=== PATIENT | male | born 1965 | race Caucasian/White ===

== ENCOUNTER 2016-12-14 09:44 | Inpatient (IN) | payer MEDICAID ==
[~2016-12-14] VITALS: Ht 180.3 cm; Wt 108.0 kg
[2016-12-14 10:19] LABS: Basophils # (auto) 0.1 uL; Basophils % (auto) 1.1 % (0.0-2.0); CONDITION Y; Eosinophils # (auto) 0.1 uL; Eosinophils % (auto) 0.7 % (0.0-7.0); Hematocrit 44.3 % (41.0-53.0); Hemoglobin 15.4 g/dL (13.5-17.5); Lymphocytes # (auto) 2.6 uL; Lymphocytes % (auto) 30.6 % (10.0-50.0); Mean Corpuscular Hemoglobin 31.9 pg (28.0-32.0); Mean Corpuscular Hgb Conc. 34.9 g/dL (32.0-36.0); Mean Corpuscular Volume 91.4 fL (80.0-100.0); Mean Platelet Volume 9.5 fL (7.4-10.4); Monocytes % (auto) 11.3 % (0.0-12.0); Neutrophils # (auto) 4.9 uL; Neutrophils % (auto) 56.3 % (37.0-80.0); Platelet Count (auto) 121 10^3/uL (140-450); Red Cell Distribution Width 12.7 % (11.6-16.0); White Blood Cell 8.6 10^3/uL (4.4-10.8)
[2016-12-14 10:59] LABS: Albumin 3.4 g/dL (3.4-5.0); Anion Gap 9 (5-15); Blood Urea Nitrogen 11 mg/dL (7-18); Calcium 8.7 mg/dL (8.5-10.1); Carbon Dioxide 24 mmol/L (21-32); Chloride 105 mmol/L (98-107); Glucose 90 mg/dL (74-106); Potassium 3.4 mmol/L (3.5-5.1); Sodium 138 mmol/L (136-145)
[2016-12-14 11:01] LABS: Aspartate Aminotransferase 31 U/L (15-37); BUN/Creatinine Ratio 13.4; GFR African American 127 mL/min; GFR Non-African American 105 mL/min
[2016-12-14 11:05] LABS: Alkaline Phosphatase 108 U/L (45-117); Bilirubin, Total 0.8 mg/dL (0.2-1.0); Total Protein 8.3 g/dL (6.4-8.2)
[2016-12-14] MEDS ORDERED: POTASSIUM CHL 20 Meq TABLET PO ONE (11:30)
[2016-12-14] MEDS ORDERED: cefTRIAXone 1GM/50ML D5W 50 ML IV ONE (11:30)
[2016-12-14] MEDS ORDERED: ASPirin 81 mg TAB PO ONE ×2 (11:30→12:45)
[2016-12-14] MEDS ORDERED: SODIUM CHLORIDE 0.9% 1,000 ML IV ONE (11:30)
[2016-12-14] MEDS ORDERED: ACETAMINOPHEN 325 MG TAB PO ONE (11:30)
[2016-12-14] MEDS ORDERED: SODIUM CHLORIDE 0.9% 1,000 ML IV SCH (11:36)
[2016-12-14] MEDS ORDERED: ACETAMINOPHEN 500 MG TAB PO PRN (11:45)
[2016-12-14] MEDS ORDERED: LORazepam 0.5 MG TAB PO PRN (11:45)
[2016-12-14] MEDS ORDERED: ONDANSETRON HCL 4 MG/2 ML VIAL IV PRN ×2 (11:45)
[2016-12-14] MEDS ORDERED: HYDROcodone-ACET 5/325MG TAB PO PRN (11:45)
[2016-12-14] MEDS ORDERED: NITROGLYCERIN 0.4 MG SL TAB SL PRN (11:45)
[2016-12-14] MEDS ORDERED: MORPHINE SULFATE 4 MG/ML SYRG IV PRN ×2 (11:45)
[2016-12-14] MEDS ORDERED: TEMAZEPAM 15 MG CAP PO PRN (11:45)
[2016-12-14 12:29] LABS: B-Type Natriuretic Peptide 14.65 pg/mL (0-100)
[2016-12-14] MEDS: AZITHROMYCIN 500MG/D5W 250ML 250 ML IV SCH (12:30)
[2016-12-14 12:37] LABS: Temperature: 22.5 C (20.0-25.0)
[2016-12-14] MEDS: SODIUM CHLORIDE 0.9% 1,000 ML IV SCH (12:54)
[2016-12-14 13:10] LABS: INR 1.05 (0.9-1.15); Partial Thromboplastin Time 29.3 sec (22.64-33.71); Prothrombin Time 11.4 sec (9.37-12.3)
[2016-12-14] MEDS: METOPROLOL TARTRATE 25 MG TAB PO SCH ×2 (13:15→22:16)
[2016-12-14] MEDS: NITROGLYCERIN 0.2MG/HR TOPICAL PATCH TD SCH (13:15)
[2016-12-14 13:33] LABS: Temperature: 22.3 C (20.0-25.0)
[2016-12-14 13:46] LABS: Urine Bilirubin Negative (Negative); Urine Blood Negative /uL (Negative); Urine Ca Oxalate Crystal FEW (None Seen); Urine Color Yellow (Yellow); Urine Glucose Normal (Normal); Urine Ketone Negative (Negative); Urine Mucus FEW (None Seen); Urine Nitrite Negative (Negative); Urine RBC 1 /hpf (0 - 3); Urine Squamous Epithelial Cell FEW /hpf (<5); Urine pH 5.5 (5.0-8.0)
[2016-12-14 17:31] VITALS: BP 99/60
[2016-12-14 20:00] VITALS: BP 114/59
[2016-12-14 22:00] VITALS: BP 114/59
[2016-12-14] MEDS ORDERED: ATORVASTATIN 20 MG TAB PO SCH ×2 (22:00)
[2016-12-14] MEDS: APIXABAN 5 MG TAB PO SCH (22:16)
[2016-12-15 03:12] VITALS: BP 109/74
[2016-12-15 03:36] LABS: Cholesterol 128 mg/dL (< 200); HDL Cholesterol 21 mg/dL (40-59); LDL Cholesterol 95 mg/dL (< 100); Triglycerides 93 mg/dL (< 150)
[2016-12-15 05:00] VITALS: BP 122/78
[2016-12-15] MEDS: SODIUM CHLORIDE 0.9% 1,000 ML IV SCH (06:14)
[2016-12-15 06:24] LABS: Basophils # (auto) 0 uL; Basophils % (auto) 0.4 % (0.0-2.0); CONDITION Y; Eosinophils # (auto) 0.2 uL; Eosinophils % (auto) 3.7 % (0.0-7.0); Hematocrit 41.4 % (41.0-53.0); Hemoglobin 14.4 g/dL (13.5-17.5); Lymphocytes # (auto) 2.2 uL; Lymphocytes % (auto) 33.2 % (10.0-50.0); Mean Corpuscular Hemoglobin 32.5 pg (28.0-32.0); Mean Corpuscular Hgb Conc. 34.9 g/dL (32.0-36.0); Mean Corpuscular Volume 93.2 fL (80.0-100.0); Mean Platelet Volume 9.8 fL (7.4-10.4); Monocytes # (auto) 0.9 uL; Monocytes % (auto) 13.9 % (0.0-12.0); Neutrophils # (auto) 3.2 uL; Neutrophils % (auto) 48.8 % (37.0-80.0); Platelet Count (auto) 105 10^3/uL (140-450); Red Cell Distribution Width 12.9 % (11.6-16.0); White Blood Cell 6.5 10^3/uL (4.4-10.8)
[2016-12-15 06:38] LABS: INR 1.07 (0.9-1.15); Partial Thromboplastin Time 31.6 sec (22.64-33.71); Prothrombin Time 11.7 sec (9.37-12.3)
[2016-12-15 06:43] LABS: BUN/Creatinine Ratio 17.5; Calcium 8.3 mg/dL (8.5-10.1); Potassium 3.6 mmol/L (3.5-5.1)
[2016-12-15 08:00] VITALS: BP 122/78
[2016-12-15 09:00] VITALS: BP 115/60
[2016-12-15] MEDS ORDERED: ASPirin 81 mg TAB PO SCH (10:00)
[2016-12-15] MEDS: AZITHROMYCIN 500MG/D5W 250ML 250 ML IV SCH (10:00)
[2016-12-15] MEDS: NITROGLYCERIN 0.2MG/HR TOPICAL PATCH TD SCH (10:00)
[2016-12-15] MEDS: METOPROLOL TARTRATE 25 MG TAB PO SCH (10:33)
[2016-12-15] MEDS: APIXABAN 5 MG TAB PO SCH (10:33)
[2016-12-15 13:00] VITALS: BP 114/64
== END 2016-12-15 13:30 | disposition left against medical advice (07) | DRG 140 ==
LOC: ER 09:44 → TELE 09:45 → TELE-E-ADS 16:07 → TELE-EAST 18:18
PROVIDERS: ADMIT Nurse Practitioner Family; ATTEND Nurse Practitioner Family
DX: J44.0 Chronic obstructive pulmonary disease with (acute) lower respiratory infection (principal); J18.9 Pneumonia, unspecified organism; N39.0 Urinary tract infection, site not specified; G45.9 Transient cerebral ischemic attack, unspecified; I15.9 Secondary hypertension, unspecified; I48.91 Unspecified atrial fibrillation; E86.0 Dehydration; J44.1 Chronic obstructive pulmonary disease with (acute) exacerbation; E87.6 Hypokalemia; E78.5 Hyperlipidemia, unspecified; B19.20 Unspecified viral hepatitis C without hepatic coma; F15.10 Other stimulant abuse, uncomplicated; I25.119 Atherosclerotic heart disease of native coronary artery with unspecified angina pectoris; F17.210 Nicotine dependence, cigarettes, uncomplicated; E66.9 Obesity, unspecified; Z68.33 Body mass index [BMI] 33.0-33.9, adult; Z82.49 Family history of ischemic heart disease and other diseases of the circulatory system; Z90.89 Acquired absence of other organs; I25.2 Old myocardial infarction
CPT/HCPCS: 36415; 70450; 71020; 71275; 80048; 80053; 80061; 80307; 81001; 82550; 82607; 82746; 83880; 84443; 84484; 85025; 85379; 85610; 85652; 85730; 86141; 87040; 93005; 93306; 93886; 96365; 96366; 99291; J0696

== ENCOUNTER 2017-04-08 11:04 | Observation (INO) | payer MEDICAID ==
[~2017-04-08] VITALS: Ht 177.8 cm; Wt 81.6 kg
[2017-04-08] MEDS ORDERED: SODIUM CHLORIDE 0.9% 1,000 ML IV ONE (11:41)
[2017-04-08] MEDS ORDERED: KETOROLAC TROMETH 30 MG/ML 1ML VIAL IV ONE (11:45)
[2017-04-08 12:51] LABS: Basophils # (auto) 0.1 uL; Basophils % (auto) 0.6 % (0.0-2.0); Eosinophils # (auto) 0.1 uL; Eosinophils % (auto) 0.7 % (0.0-7.0); Hematocrit 45.3 % (41.0-53.0); Hemoglobin 15.5 g/dL (13.5-17.5); Lymphocytes # (auto) 2.3 uL; Lymphocytes % (auto) 22.8 % (10.0-50.0); Mean Corpuscular Hemoglobin 30.9 pg (28.0-32.0); Mean Corpuscular Hgb Conc. 34.1 g/dL (32.0-36.0); Mean Corpuscular Volume 90.6 fL (80.0-100.0); Monocytes # (auto) 0.9 uL; Monocytes % (auto) 8.5 % (0.0-12.0); Neutrophils # (auto) 6.9 uL; Neutrophils % (auto) 67.4 % (37.0-80.0); Platelet Count (auto) 120 10^3/uL (140-450); Red Cell Distribution Width 13.9 % (11.8-14.3); White Blood Cell 10.2 10^3/uL (4.4-10.8)
[2017-04-08 13:10] LABS: BUN/Creatinine Ratio 22.2; Calcium 9.4 mg/dL (8.5-10.1); Potassium 3.7 mmol/L (3.5-5.1)
[2017-04-08 14:28] VITALS: BP 151/75
== END 2017-04-08 14:25 | disposition home or self-care (01) | DRG 465 ==
LOC: ER 11:04 → EDBD 11:04 → OVERFLOW 11:42 → ER 14:25
PROVIDERS: ADMIT Emergency Medicine; ATTEND Emergency Medicine
DX: N20.0 Calculus of kidney (principal); I48.91 Unspecified atrial fibrillation; I10 Essential (primary) hypertension; F17.210 Nicotine dependence, cigarettes, uncomplicated
CPT/HCPCS: 36415; 74176; 80048; 85025; 93005; 96374; 99285; G0378; J1885; J7030

== ENCOUNTER 2017-07-20 11:24 | Inpatient (IN) | payer MEDICAID ==
[~2017-07-20] VITALS: Ht 185.4 cm; Wt 84.1 kg
[2017-07-20 12:03] LABS: Basophils # (auto) 0.4 uL; Basophils % (auto) 3.1 % (0.0-2.0); Eosinophils # (auto) 0 uL; Eosinophils % (auto) 0.1 % (0.0-7.0); Hematocrit 45.2 % (41.0-53.0); Hemoglobin 15.1 g/dL (13.5-17.5); Lymphocytes # (auto) 2.2 uL; Lymphocytes % (auto) 15.7 % (10.0-50.0); Mean Corpuscular Hemoglobin 29.5 pg (28.0-32.0); Mean Corpuscular Hgb Conc. 33.5 g/dL (32.0-36.0); Monocytes # (auto) 0.8 uL; Monocytes % (auto) 5.7 % (0.0-12.0); Neutrophils # (auto) 10.7 uL; Neutrophils % (auto) 75.4 % (37.0-80.0); Nucleated Red Blood Cells % 0.1 %; Platelet Count (auto) 301 10^3/uL (140-450); Red Blood Cells 5.13 10^6/uL (4.5-5.90); Red Cell Distribution Width 13.8 % (11.8-14.3); White Blood Cell 14.2 10^3/uL (4.4-10.8)
[2017-07-20 12:26] LABS: Albumin 2.9 g/dL (3.4-5.0); BUN/Creatinine Ratio 17.1; Bilirubin, Total 0.5 mg/dL (0.2-1.0); Calcium 8.6 mg/dL (8.5-10.1); Potassium 3.7 mmol/L (3.5-5.1); Total Protein 9.6 g/dL (6.4-8.2)
[2017-07-20] MEDS ORDERED: SODIUM CHLORIDE 0.9% 1,000 ML IVB ONE (16:26)
[2017-07-20] MEDS ORDERED: KETOROLAC TROMETH 30 MG/ML 1ML VIAL IV ONE (16:30)
[2017-07-20] MEDS ORDERED: TAMSULOSIN HYDROCHLORIDE 0.4 MG CAP PO ONE (16:30)
[2017-07-20] MEDS ORDERED: PROMETHAZINE HCL 25 MG/ML 1ML IV PRN ×2 (16:30→17:30)
[2017-07-20 16:45] LABS: Magnesium 2.2 mg/dL (1.6-2.6)
[2017-07-20] MEDS ORDERED: LORazepam 0.5 MG TAB PO PRN (17:30)
[2017-07-20] MEDS ORDERED: TEMAZEPAM 15 MG CAP PO PRN (17:30)
[2017-07-20] MEDS ORDERED: NITROGLYCERIN 0.4 MG SL TAB SL PRN (17:30)
[2017-07-20] MEDS ORDERED: cefTRIAXone 1GM/10ml IVPUSH 10 ML IV ONE (17:30)
[2017-07-20] MEDS ORDERED: MORPHINE SULFATE 4 MG/ML SYR/VIAL IV PRN ×2 (17:30)
[2017-07-20] MEDS ORDERED: ACETAMINOPHEN 500 MG TAB PO PRN (17:30)
[2017-07-20] MEDS: FAMOTIDINE (10MG/ML) 2ML VL IV SCH (17:30)
[2017-07-20] MEDS: SODIUM CHLORIDE 0.9% 1,000 ML IV SCH (18:15)
[2017-07-20 18:27] LABS: Urine Bacteria NONE SEEN /hpf (None Seen); Urine Blood Negative /uL (Negative); Urine Mucus FEW (None Seen); Urine WBC 95 /hpf (0 - 3)
[2017-07-20 20:05] VITALS: BP 131/87
[2017-07-20 22:00] VITALS: BP 131/87
[2017-07-21] MEDS: SODIUM CHLORIDE 0.9% 1,000 ML IV SCH ×3 (03:16→23:43)
[2017-07-21 05:00] VITALS: BP 124/66
[2017-07-21] MEDS: FAMOTIDINE (10MG/ML) 2ML VL IV SCH ×2 (05:30→16:53)
[2017-07-21 05:52] LABS: Basophils # (auto) 0 uL; Basophils % (auto) 0.6 % (0.0-2.0); Eosinophils # (auto) 0 uL; Eosinophils % (auto) 0.2 % (0.0-7.0); Hematocrit 46.7 % (41.0-53.0); Hemoglobin 15.7 g/dL (13.5-17.5); Lymphocytes # (auto) 1.5 uL; Lymphocytes % (auto) 20.6 % (10.0-50.0); Mean Corpuscular Hemoglobin 29.9 pg (28.0-32.0); Mean Corpuscular Hgb Conc. 33.7 g/dL (32.0-36.0); Mean Corpuscular Volume 88.4 fL (80.0-100.0); Monocytes # (auto) 0.9 uL; Monocytes % (auto) 11.8 % (0.0-12.0); Neutrophils # (auto) 4.9 uL; Neutrophils % (auto) 66.8 % (37.0-80.0); Nucleated Red Blood Cells % 0.1 %; Platelet Count (auto) 197 10^3/uL (140-450); Red Blood Cells 5.28 10^6/uL (4.5-5.90); Red Cell Distribution Width 13.8 % (11.8-14.3); White Blood Cell 7.3 10^3/uL (4.4-10.8)
[2017-07-21 06:16] LABS: Albumin 3.1 g/dL (3.4-5.0); BUN/Creatinine Ratio 23.5; Bilirubin, Total 0.4 mg/dL (0.2-1.0); Potassium 4.1 mmol/L (3.5-5.1); Total Protein 9.5 g/dL (6.4-8.2)
[2017-07-21 09:00] VITALS: BP 121/70
[2017-07-21] MEDS ORDERED: cefTRIAXone 1GM/10ml IVPUSH 10 ML IV SCH (09:00)
[2017-07-21] MEDS: cefTRIAXone 1GM/10ml IVPUSH 10 ML IV SCH (09:12)
[2017-07-21 13:00] VITALS: BP 136/82
[2017-07-21] MEDS: HYDROcodone-ACET 5/325MG TAB PO PRN (16:53)
[2017-07-21 16:58] VITALS: BP 132/66
[2017-07-21 18:00] VITALS: BP 135/87
[2017-07-21 19:58] LABS: Alcohol, Urine < 3.0 mg/dL (0-5); Amphetamine Screen, Urine POSITIVE (NEGATIVE); Barbiturate Scree,Urine NEGATIVE (NEGATIVE); Benzodiazephine Screen, Urine NEGATIVE (NEGATIVE); Cannabinoid Screen, Urine NEGATIVE (NEGATIVE); Cocaine Screen, Urine NEGATIVE (NEGATIVE); Opiate Scree,Urine NEGATIVE (NEGATIVE); Phencyclidine Screen, Urine NEGATIVE (NEGATIVE)
[2017-07-21 22:00] VITALS: BP 135/87
[2017-07-22 05:00] VITALS: BP 141/89
[2017-07-22] MEDS: FAMOTIDINE (10MG/ML) 2ML VL IV SCH ×2 (05:16→17:59)
[2017-07-22 07:51] VITALS: BP 141/79
[2017-07-22] MEDS: SODIUM CHLORIDE 0.9% 1,000 ML IV SCH ×2 (08:35→13:40)
[2017-07-22] MEDS: cefTRIAXone 1GM/10ml IVPUSH 10 ML IV SCH (08:39)
[2017-07-22 11:38] VITALS: BP 124/71
[2017-07-22] MEDS ORDERED: VANCOMYCIN PER PHARMACY 0 MG IV SCH (13:00)
[2017-07-22] MEDS: VANCOMYCIN 1,250 MG in D5W 5% 250 ML IV SCH (15:33)
[2017-07-22 16:35] VITALS: BP 127/79
[2017-07-22 22:13] VITALS: BP 143/76
[2017-07-22] MEDS: HYDROcodone-ACET 5/325MG TAB PO PRN (23:58)
[2017-07-23] MEDS: VANCOMYCIN 1,250 MG in D5W 5% 250 ML IV SCH (03:07)
[2017-07-23 04:46] VITALS: BP 149/82
[2017-07-23] MEDS: FAMOTIDINE (10MG/ML) 2ML VL IV SCH (05:36)
[2017-07-23] MEDS: SODIUM CHLORIDE 0.9% 1,000 ML IV SCH (07:00)
[2017-07-23 07:39] LABS: BUN/Creatinine Ratio 23.5; Calcium 8.2 mg/dL (8.5-10.1); Potassium 3.5 mmol/L (3.5-5.1)
[2017-07-23 08:26] VITALS: BP 126/79
[2017-07-23 12:00] VITALS: BP 132/87
[2017-07-23] MEDS ORDERED: SULF400T11 PO (12:29)
[2017-07-23] MEDS ORDERED: MUPI2OIN10 EACHNOSTRI (12:30)
== END 2017-07-23 14:09 | disposition home or self-care (01) | DRG 720 ==
LOC: EDUNIT# 11:24 → ER 11:24 → EDBD 11:24 → TELE 11:25 → TELE-EAST 20:05
PROVIDERS: ADMIT Internal Medicine; ATTEND Internal Medicine
DX: A41.9 Sepsis, unspecified organism (principal); E44.0 Moderate protein-calorie malnutrition; I48.0 Paroxysmal atrial fibrillation; E87.1 Hypo-osmolality and hyponatremia; K74.60 Unspecified cirrhosis of liver; I10 Essential (primary) hypertension; N39.0 Urinary tract infection, site not specified; J44.9 Chronic obstructive pulmonary disease, unspecified; E78.5 Hyperlipidemia, unspecified; F15.90 Other stimulant use, unspecified, uncomplicated; B19.20 Unspecified viral hepatitis C without hepatic coma; B95.62 Methicillin resistant Staphylococcus aureus infection as the cause of diseases classified elsewhere; F17.210 Nicotine dependence, cigarettes, uncomplicated; N13.2 Hydronephrosis with renal and ureteral calculous obstruction; I25.10 Atherosclerotic heart disease of native coronary artery without angina pectoris; N12 Tubulo-interstitial nephritis, not specified as acute or chronic; Z82.49 Family history of ischemic heart disease and other diseases of the circulatory system; Z83.3 Family history of diabetes mellitus; Z68.24 Body mass index [BMI] 24.0-24.9, adult
CPT/HCPCS: 36415; 74176; 76775; 80048; 80053; 80307; 81001; 83690; 83735; 85025; 87040; 87081; 87086; 87088; 87186; 93005; 96361; 96374; 96375; J1885; J3490; J7060

== ENCOUNTER 2017-11-02 08:23 | Emergency (ER) | payer MEDICAID ==
[~2017-11-02] VITALS: Ht 180.3 cm; Wt 81.6 kg
[~2017-11-02 08:23] MED LIST: MUPI2OIN10 EACHNOSTRI; SULF400T11 PO
[2017-11-02] MEDS ORDERED: LISINOPRIL 20 MG TAB PO ONE (08:45)
[2017-11-02] MEDS ORDERED: LISINOPRIL 20 MG TAB ONE (08:48)
[2017-11-02 09:07] VITALS: BP 138/90
== END 2017-11-02 09:07 ==
LOC: ER 08:25 → EDBD 08:25 → ER 09:06
DX: I10 Essential (primary) hypertension (principal); E78.5 Hyperlipidemia, unspecified; F17.210 Nicotine dependence, cigarettes, uncomplicated; Z91.19 Patient's noncompliance with other medical treatment and regimen; Z87.442 Personal history of urinary calculi

== ENCOUNTER 2018-05-23 09:35 | Emergency (ER) | payer MEDICAID ==
[~2018-05-23] VITALS: Ht 185.4 cm; Wt 86.2 kg
[2018-05-23 10:24] LABS: Basophils # (auto) 0 uL; Basophils % (auto) 0.4 % (0.0-2.0); Eosinophils # (auto) 0 uL; Eosinophils % (auto) 0.9 % (0.0-7.0); Hematocrit 40.9 % (41.0-53.0); Hemoglobin 13.4 g/dL (13.5-17.5); Lymphocytes # (auto) 1.3 uL; Lymphocytes % (auto) 23.7 % (10.0-50.0); Mean Corpuscular Hemoglobin 29.6 pg (28.0-32.0); Mean Corpuscular Hgb Conc. 32.8 g/dL (32.0-36.0); Mean Corpuscular Volume 90.4 fL (80.0-100.0); Monocytes # (auto) 0.6 uL; Monocytes % (auto) 11.2 % (0.0-12.0); Neutrophils # (auto) 3.6 uL; Neutrophils % (auto) 63.8 % (37.0-80.0); Nucleated Red Blood Cells % 0.1 %; Platelet Count (auto) 110 10^3/uL (140-450); Red Blood Cells 4.53 10^6/uL (4.5-5.90); Red Cell Distribution Width 13.1 % (11.8-14.3); White Blood Cell 5.6 10^3/uL (4.4-10.8)
[2018-05-23] MEDS ORDERED: KETOROLAC TROMETH 60MG/2ML VIAL IM ONE (11:30)
[2018-05-23 11:39] VITALS: BP 154/92
[2018-05-23 11:44] LABS: Anion Gap 4 (5-15); Carbon Dioxide 24 mmol/L (21-32); Chloride 106 mmol/L (98-107); Glucose 101 mg/dL (74-106); Potassium 3.5 mmol/L (3.5-5.1); Sodium 134 mmol/L (136-145)
[2018-05-23 11:45] LABS: Alanine Aminotransferase 21 U/L (16-61); Albumin 3.1 g/dL (3.4-5.0); Alkaline Phosphatase 107 U/L (45-117); Aspartate Aminotransferase 17 U/L (15-37); BUN/Creatinine Ratio 23.4; Bilirubin, Total 0.7 mg/dL (0.2-1.0); Blood Urea Nitrogen 15 mg/dL (7-18); Calcium 8.1 mg/dL (8.5-10.1); GFR African American 168 mL/min; GFR Non-African American 139 mL/min; Total Protein 7.4 g/dL (6.4-8.2)
== END 2018-05-23 12:35 | disposition home or self-care (01) ==
LOC: ER 09:35 → EDBD 09:35 → ER 12:35
DX: G89.29 Other chronic pain (principal); M25.551 Pain in right hip; M54.5 Low back pain; I48.91 Unspecified atrial fibrillation; E78.5 Hyperlipidemia, unspecified; I10 Essential (primary) hypertension; F17.210 Nicotine dependence, cigarettes, uncomplicated; F12.90 Cannabis use, unspecified, uncomplicated; F15.90 Other stimulant use, unspecified, uncomplicated; Z79.899 Other long term (current) drug therapy
CPT/HCPCS: 36415; 72100; 72192; 73552; 80053; 84484; 85025; 93005; 96372; 99284; J1885

== ENCOUNTER 2018-06-04 22:46 | Emergency (ER) | payer MEDICAID ==
[~2018-06-04] VITALS: Ht 180.3 cm; Wt 79.4 kg
[2018-06-04 23:12] VITALS: BP 155/97
[2018-06-05 00:52] LABS: Basophils # (auto) 0.1 uL; Basophils % (auto) 0.6 % (0.0-2.0); Eosinophils # (auto) 0 uL; Eosinophils % (auto) 0.5 % (0.0-7.0); Hematocrit 44.8 % (41.0-53.0); Hemoglobin 14.6 g/dL (13.5-17.5); Lymphocytes # (auto) 3.4 uL; Lymphocytes % (auto) 34.6 % (10.0-50.0); Mean Corpuscular Hemoglobin 29.4 pg (28.0-32.0); Mean Corpuscular Hgb Conc. 32.6 g/dL (32.0-36.0); Mean Corpuscular Volume 90.2 fL (80.0-100.0); Monocytes # (auto) 0.6 uL; Monocytes % (auto) 6.3 % (0.0-12.0); Neutrophils # (auto) 5.6 uL; Nucleated Red Blood Cells % 0.1 %; Platelet Count (auto) 228 10^3/uL (140-450); Red Blood Cells 4.97 10^6/uL (4.5-5.90); Red Cell Distribution Width 13.3 % (11.8-14.3); White Blood Cell 9.7 10^3/uL (4.4-10.8)
[2018-06-05 01:09] LABS: Albumin 3.5 g/dL (3.4-5.0); Anion Gap 9 (5-15); BUN/Creatinine Ratio 17.9; Blood Urea Nitrogen 14 mg/dL (7-18); Calcium 8.9 mg/dL (8.5-10.1); Carbon Dioxide 26 mmol/L (21-32); Chloride 105 mmol/L (98-107); GFR African American 133 mL/min; GFR Non-African American 110 mL/min; Glucose 87 mg/dL (74-106); Magnesium 2.3 mg/dL (1.6-2.6); Potassium 3.5 mmol/L (3.5-5.1); Sodium 140 mmol/L (136-145)
[2018-06-05 01:14] LABS: Alanine Aminotransferase 25 U/L (16-61); Alkaline Phosphatase 116 U/L (45-117); Aspartate Aminotransferase 23 U/L (15-37); Bilirubin, Total 0.5 mg/dL (0.2-1.0); Total Protein 8.7 g/dL (6.4-8.2)
[2018-06-05] MEDS ORDERED: LISINOPRIL 20 MG TAB PO ONE (02:45)
== END 2018-06-05 05:06 | disposition home or self-care (01) ==
LOC: ER 22:47
DX: I10 Essential (primary) hypertension (principal); I48.91 Unspecified atrial fibrillation; E78.5 Hyperlipidemia, unspecified; F17.210 Nicotine dependence, cigarettes, uncomplicated; Z87.442 Personal history of urinary calculi; F12.90 Cannabis use, unspecified, uncomplicated; F15.90 Other stimulant use, unspecified, uncomplicated
CPT/HCPCS: 36415; 71045; 80053; 83735; 83880; 84484; 85025; 93005